=== PATIENT | female | born 1950 | race Caucasian/White ===

== ENCOUNTER 2017-02-01 08:11 | Day surgery (SDC) | payer MEDICAID ==
[~2017-02-01 08:11] MED LIST: Metoclopramide 10 MG/2 ML SDV IV PRN; Sodium Chloride 0.9% 1,000 ML IV SCH; Sodium Chloride 0.9% 10 ML Syringe FLUSH PRN
[2017-02-01] MEDS ORDERED: Propofol 200 MG/20 ML SDV ONE (09:55)
[2017-02-01 10:15] VITALS: BP 103/55
[2017-02-01] MEDS ORDERED: Diatrizoate Meglumine/Diatrizoate Sodium 37% 30 ML Bottle PO PRN (11:12)
--- NOTE | 2017-02-01 15:01 | OR ---
DATE OF OPERATION: 02/01/2017 PREOPERATIVE DIAGNOSIS: Screening colonoscopy, primary. POSTOPERATIVE DIAGNOSIS: Left colonoscopy. OPERATION: Left colonoscopy. COMPLICATIONS: None. DRAINS: None. SPECIMENS: None. ESTIMATED BLOOD LOSS: Zero. ANESTHESIA: General propofol anesthesia. INDICATION: Ms. Garcia is a 66-year-old female, here for her primary screening colonoscopy. She has never had this procedure performed. She is of average risk with no family history and is currently asymptomatic. The above-mentioned procedure was explained. The risks, benefits, and complications were explained. The patient understood and agreed and she was brought to the operating room. DESCRIPTION OF PROCEDURE: The patient was brought to the operating room and placed in the left lateral decubitus position on the operating room table. Satisfactory general propofol anesthesia was administered. We began by performing a rectal examination, which was within normal limits. I then placed the endoscope by finger introduction into the rectum and subsequently advanced this up to the mid transverse colon. At this point, there appeared to be a narrowing within the mid transverse colon, and after table maneuvers with placing the patient supine as well as on the right-hand side down, I was unable to un-kink this and gentle pressure applied due to endoscope was unable to penetrate this area. This appeared to be approximately midway in the transverse colon. No identifiable mucosal changes to suggest neoplasm. In view of perforation, I then abandoned on any forward advancement of the procedure at this stage. We then carefully evaluated the left colon on withdrawal. This revealed no other findings. No polyps, no neoplastic growths, no telangiectasias or diverticula. Retroflexion was performed in the rectum, which revealed no significant findings. The colon was decompressed and the endoscope was withdrawn. It was advised for the patient to undergo a CT scan of the abdomen and pelvis with p.o. and IV contrast and possible colonoscopy by pediatric endoscope in the near future. The patient was then awoken in the OR and taken to the PACU for recovery. WENDY /[id number]
--- NOTE | 2017-02-04 08:33 | CT ---
DATE OF SERVICE: 02/01/17 CLINICAL DATA: Unable to assess during colonoscopy UNENHANCED ABDOMEN AND PELVIC CT: Multislice acquisition through the abdomen and pelvis without IV, but with oral contrast was performed. No priors. There are minimal atelectatic changes in the dependent portion of both lower lungs. The lung bases are otherwise clear. The unenhanced liver appears normal. The gallbladder appears normal. The spleen appears normal. The pancreas appears normal. The right and left adrenals appear normal. The right and left kidneys appear normal. No nephrocalcinosis or nephrolithiasis. No hydronephrosis or hydroureter. There is a small amount of fluid within the bladder. It appears grossly normal. No evidence of appendicitis. There are a few segments within the descending and sigmoid colon with apparent mural thickening. This is probably related to nondistension. Colitis should at least be considered. There are scattered air-fluid levels within the small bowel and colon. They are not distended. Enterocolitis should be considered. No free air. No free fluid. No dilated loops of bowel. No adenopathy. No aortic aneurysm. There is a small umbilical hernia containing fat. [id number] [facility]
== END 2017-02-01 13:16 | disposition home or self-care (01) ==
LOC: LB.SDS 08:11
PROVIDERS: ATTEND Surgery
DX: Z12.11 Encounter for screening for malignant neoplasm of colon (principal); Z88.8 Allergy status to other drugs, medicaments and biological substances
CPT/HCPCS: 45378; 74176; J2704; J7040